=== PATIENT | female | born 1995 | race Caucasian/White ===

== ENCOUNTER 2019-08-12 19:51 | Emergency (ER) | payer OTHER ==
[~2019-08-12] VITALS: Ht 160 cm; Wt 75.0 kg
[2019-08-12 20:20] LABS: BASOPHILS % (AUTO) 0.5 % (0-1); EOSINOPHILS % (AUTO) 0.7 % (0-6); HEMATOCRIT 37.6 % (35.0-45.0); LYMPHOCYTES # (AUTO) 1.8 X10'3 (1.1-4.8); LYMPHOCYTES % (AUTO) 29.6 % (21-51); MEAN CORPUSCULAR HEMOGLOBIN 32.4 PG (27.0-31.0); MEAN CORPUSCULAR HGB CONC 34.7 g/dL (33.0-36.5); MEAN CORPUSCULAR VOLUME 93.2 FL (78-98); MEAN PLATELET VOLUME 7.1 FL (7.4-10.4); MONOCYTES # (AUTO) 0.4 X10'3 (0-0.9); MONOCYTES % (AUTO) 7.3 % (2-12); NEUTROPHILS # (AUTO) 3.7 X10'3 (1.8-7.7); NEUTROPHILS % (AUTO) 61.9 % (42-75); PLATELET COUNT 258 X10'3 (140-440); RED BLOOD COUNT 4.03 X10'6 (4.20-5.60); RED CELL DISTRIBUTION WIDTH 12.5 % (11.5-14.5); WHITE BLOOD COUNT 5.9 X10'3 (4.5-11.0)
[2019-08-12 20:35] LABS: ALANINE AMINOTRANSFERASE 20 U/L (12-78); ALBUMIN 3.9 G/DL (3.4-5.0); ALKALINE PHOSPHATASE 85 IU/L (46-116); AMYLASE 53 U/L (25-115); ANION GAP 8 (8-16); ASPARTATE AMINO TRANSFERASE 15 U/L (10-37); BILIRUBIN,TOTAL 0.3 MG/DL (0.1-1.0); BLOOD UREA NITROGEN 13 MG/DL (7-18); BUN/CREATININE RATIO 17.6 (6.6-38.0); CALCIUM 8.8 MG/DL (8.5-10.1); CHLORIDE 106 MMOL/L (99-107); CREATININE 0.74 MG/DL (0.40-0.90); GLUCOSE 88 MG/DL (70-104); LIPASE 136 U/L (73-393); POTASSIUM 3.8 MMOL/L (3.5-5.1); SODIUM 140 MMOL/L (135-145); TOTAL CARBON DIOXIDE 25.9 MMOL/L (24-32); TOTAL PROTEIN 7.9 G/DL (6.4-8.2); eGFR > 90 ML/MIN
[2019-08-12] MEDS ORDERED: ondansetron/PF 4mg/2ml inj IV ONE (20:45)
[2019-08-12] MEDS ORDERED: normal saline 1000ML IV soln IVB ONE (20:45)
[2019-08-12 20:56] LABS: URINE HCG NEGATIVE (NEG)
[2019-08-12 20:57] LABS: CLARITY,URINE CLEAR (Clear); COLOR,URINE YELLOW (Yellow); GLUCOSE, URINE NEGATIVE (Neg); KETONES,URINE TRACE mg/dl (Neg); LEUKOCYTE ESTERASE ,URINE NEGATIVE (Neg); NITRITES, URINE NEGATIVE (Neg); OCCULT BLOOD,URINE TRACE-INTACT (Neg); PROTEIN,URINE NEGATIVE (Neg); UROBILINOGEN,URINE 0.2 E.U/dL (0.2-1.0)
[2019-08-12 21:02] LABS: UA COLLECTION TYPE CLN CATCH MIDSTREAM
[2019-08-12 21:03] LABS: BACTERIA,URINE NONE SEEN /HPF (Neg); MUCUS STRANDS NONE SEEN /LPF (Neg); RBC,URINE 0-2 /HPF (0-2); SQUAMOUS EPITHELIAL CELL,UR FEW /LPF (FEW); WBC,URINE NONE SEEN /HPF (0-4)
[2019-08-12] MEDS ORDERED: ONDA4TAB12 PO (21:09)
--- NOTE | 2019-08-12 21:54 | NUR ---
pt resting comfortably. ivf almost complete pt content friend at bedside
[2019-08-12 22:26] VITALS: BP 119/72
== END 2019-08-12 22:27 | disposition home or self-care (01) ==
LOC: ER 19:52
DX: E86.0 Dehydration (principal); R11.2 Nausea with vomiting, unspecified; R19.7 Diarrhea, unspecified; R50.9 Fever, unspecified; R10.10 Upper abdominal pain, unspecified; Z79.899 Other long term (current) drug therapy
CPT/HCPCS: 36415; 80053; 81001; 81025; 82150; 83690; 85025; 85610; 96374; 99283; J2405; J7030

== ENCOUNTER 2019-12-28 17:44 | Emergency (ER) | payer OTHER ==
[~2019-12-28] VITALS: Ht 165.1 cm; Wt 65.0 kg
[~2019-12-28 17:44] MED LIST: ONDA4TAB12 PO
[2019-12-28 18:27] LABS: URINE HCG NEGATIVE (NEG)
[2019-12-28 18:37] LABS: CLARITY,URINE CLEAR (Clear); COLOR,URINE YELLOW (Yellow); GLUCOSE, URINE NEGATIVE (Neg); KETONES,URINE 15 mg/dl (Neg); LEUKOCYTE ESTERASE ,URINE NEGATIVE (Neg); NITRITES, URINE NEGATIVE (Neg); OCCULT BLOOD,URINE LARGE (Neg); PH,URINE 5.5 (4.8-8.0); PROTEIN,URINE NEGATIVE (Neg); UROBILINOGEN,URINE 0.2 E.U/dL (0.2-1.0)
[2019-12-28 18:40] LABS: UA COLLECTION TYPE CLN CATCH MIDSTREAM
[2019-12-28 18:42] LABS: BACTERIA,URINE NONE SEEN /HPF (Neg); MUCUS STRANDS MANY /LPF (Neg); SQUAMOUS EPITHELIAL CELL,UR MANY /LPF (FEW); WBC,URINE 0-4 /HPF (0-4)
[2019-12-28] MEDS ORDERED: dexamethasone sod phosphate 10mg/ml inj IV STA (20:34)
[2019-12-28] MEDS ORDERED: ketorolac tromethamine 15mg/ml inj. IV ONE (20:35)
[2019-12-28] MEDS ORDERED: diphenhydrAMINE 50 mg/ml inj IV ONE ×2 (20:35→20:55)
[2019-12-28] MEDS ORDERED: proCHLORperazine 10 MG/2 ml inj IV ONE (20:35)
[2019-12-28] MEDS ORDERED: normal saline 1000ML IV soln IVB ONE (20:35)
[2019-12-28] MEDS ORDERED: ONDA4TAB6 PO (21:32)
[2019-12-28 21:56] VITALS: BP 98/62
== END 2019-12-28 21:58 | disposition home or self-care (01) ==
LOC: ER 17:44
DX: G43.909 Migraine, unspecified, not intractable, without status migrainosus (principal); R42 Dizziness and giddiness; R11.2 Nausea with vomiting, unspecified; Z79.899 Other long term (current) drug therapy
CPT/HCPCS: 81001; 81025; 96374; 96375; 99284; J0780; J1100; J1200; J1885; J7030